=== PATIENT | male | born 1985 | race Caucasian/White ===

== ENCOUNTER → 2024-05-02 12:55 | Outpatient (REF) | payer BC, SELFPAY | LOC: RCS 12:55 | PROVIDERS: ATTENDING PHYSICIAN Internal Medicine Cardiovascular Disease; FAMILY PHYSICIAN Student in an Organized Health Care Education/Training Program | DX: R00.2 Palpitations (principal) | CPT/HCPCS: 93306 ==

== ENCOUNTER → 2025-06-04 16:54 | Outpatient (REF) | payer BC, SELFPAY | LOC: RAD 16:54 | PROVIDERS: ATTENDING PHYSICIAN Student in an Organized Health Care Education/Training Program | DX: M25.512 Pain in left shoulder (principal); M89.8X1 Other specified disorders of bone, shoulder | CPT/HCPCS: 73000; 73030 ==

== ENCOUNTER 2025-08-09 13:06 | Day surgery (SDC) | payer BC, SELFPAY ==
[2025-08-09] VITALS (9 sets, daily range): BP systolic 104–124; BP diastolic 67–81; BMI 24.4
--- NOTE | 2025-08-09 09:20 | ITS.CL.CATH ---
[facility] - Catheterization
Cardiac Catheterization
Procedure Report:
LEFT HEART CATHETERIZATION
Date of Procedure: August 09, 2025
Referring: Dr. Thomas Miranda
PROCEDURES:
1. Left heart catheterization, coronary angiogram.
2. Moderate sedation.
INDICATION: Recurrent NSVT
ACCESS: Right radial artery, 6Fr. sheath, under US guidance.
HEMODYNAMICS : (mmHg)
AO (s/d) : 134/90
LVEDP : 17
No significant gradient across the aortic valve to suggest aortic stenosis.
CORONARY FINDINGS
Dominance: Right
Left Main Trunk (LMT): Large caliber vessel that gives rise to the LAD and LCx branches and is free of angiographic disease.
Left Anterior Descending Artery (LAD): Large caliber vessel that gives off 2 major diagonal branches as it courses along the anterior inter-ventricular groove before wrapping around the cardiac apex. The LAD and its branches are free of
angiographic disease.
Left Circumflex Artery (LCx): Small to medium caliber vessel that gives off 1 major obtuse marginal (OM) branch as it courses along the atrio-ventricular (AV) groove. The LCx and its branches are free of angiographic disease.
Right Coronary Artery (RCA): Large caliber dominant vessel that gives rise to the posterior descending artery (RPDA) and postero-lateral ventricular (RPLV) branches distally. The RCA and its branches are free of angiographic disease.
SEDATION: 27 minutes of procedural sedation was utilized. IV Midazolam and IV Fentanyl were administered. An independent medical office supervisor was present to assist with and help manage the patient's level of consciousness and physiologic status.
RADIATION SUMMARY: Fluoro Time (min): 2.1, Dose (mGy): 188.7 DAP (Gy.cm2) : 16.1
Closure Device: There were no immediate intra-procedural complications. The sheath was pulled in the labor relations specialist and a vascular-band applied to the right wrist for radial artery hemostasis using the patent hemostasis technique.
CONCLUSIONS
1. No obstructive coronary artery disease.
2. LVEDP of 17 mmHg
RECOMMENDATIONS
1. Wean radial band per protocol. Monitor right hand perfusion and for bleeding from the radial site following removal of the vascular-band following trans-radial access.
2. Continue aggressive medical therapy and risk factor modification for secondary CAD prevention.
3. Hydrate with normal saline to mitigate the risk of contrast-induced acute kidney injury.
4. Follow-up with Dr. Miranda
Arcelia Fagan MD, [facility], [facility]
Copy to: Dr. Thomas Miranda and Phyllis Alvarez PA-C
[2025-08-09 13:32] LABS: Hematocrit 41.3 % (39.0-52.0); Hemoglobin 12.8 g/dL (13.0-18.0); Mean Corp Hgb Conc. 31.0 g/dL (33.0-37.0); Mean Corpuscular Volume 77.1 fL (80.0-94.0); Platelet Count 224 10^3/uL (130-400); Red Cell Dist. Width 16.3 % (11.5-14.5)
[2025-08-09 13:53] LABS: ALT (SGPT) 20 U/L (0-50); AST (SGOT) 23 U/L (17-59); Albumin 4.9 g/dl (3.5-5.0); Alkaline Phosphatase 50 U/L (38-126); Blood Urea Nitrogen 12 mg/dl (9-20); Calcium 9.8 mg/dl (8.4-10.2); Carbon Dioxide 31 mmol/L (22-30); Chloride 100 mmol/L (98-107); Estimated Creatinine Clearance 123 ml/min; Glucose 89 mg/dl (70-99); Potassium 4.1 mmol/L (3.5-5.1); Sodium 138 mmol/L (135-145); Total Protein 7.5 g/dl (6.3-8.2); eGFR > 60.00
[2025-08-09] MEDS: LOW STRENGTH ASPIRIN 324 MG PO (13:53)
[2025-08-09 14:18] LABS: Magnesium 2.1 mg/dl (1.6-2.3)
[2025-08-09] MEDS: NSS 1000 IV (16:10)
== END 2025-08-09 19:00 | disposition home or self-care (01) ==
LOC: CATH 13:06
PROVIDERS: ATTENDING PHYSICIAN Internal Medicine Interventional Cardiology; FAMILY PHYSICIAN Physician Assistant; OTHER PHYSICIAN Internal Medicine Cardiovascular Disease
DX: I47.20 Ventricular tachycardia, unspecified (principal); I49.3 Ventricular premature depolarization; R00.2 Palpitations
CPT/HCPCS: 99152; 99153; 80053; 83735; 85027; 93458; C1769; C1894; Q9967

== ENCOUNTER → 2025-08-22 14:01 | Outpatient (REF) | payer BC, SELFPAY | LOC: REG 14:01 | PROVIDERS: ATTENDING PHYSICIAN Internal Medicine Cardiovascular Disease | DX: I47.20 Ventricular tachycardia, unspecified (principal) | CPT/HCPCS: 71046 ==

== ENCOUNTER → 2025-08-22 14:06 | Outpatient (REF) | payer BC, SELFPAY | LOC: RCS 14:06 | PROVIDERS: ATTENDING PHYSICIAN Internal Medicine Cardiovascular Disease; FAMILY PHYSICIAN Physician Assistant | DX: I49.3 Ventricular premature depolarization (principal); I47.20 Ventricular tachycardia, unspecified | CPT/HCPCS: 71046; 93306 ==

== ENCOUNTER → 2025-09-11 08:26 | Outpatient (REF) | payer BC, SELFPAY | LOC: MRI 08:26 | PROVIDERS: ATTENDING PHYSICIAN Internal Medicine Cardiovascular Disease; FAMILY PHYSICIAN Physician Assistant | DX: I47.20 Ventricular tachycardia, unspecified (principal) | CPT/HCPCS: 75561; 75565; A9585 ==